=== PATIENT | female | born 2005 | race Two or more races ===

== ENCOUNTER 2024-02-18 21:16 | Emergency (ER) | payer MEDICAID ==
[~2024-02-18] VITALS: Ht 154.9 cm; Wt 61.3 kg
[2024-02-18 22:02] LABS: Basophils # (auto) 0 10 ^3/uL (0-0.2); Basophils % (auto) 0.3 % (0.0-2.0); Eosinophils # (auto) 0.2 10 ^3/uL (0-0.8); Lymphocytes # (auto) 3.1 10 ^3/uL (0.4-5.4); Mean Corpuscular Hemoglobin 29.9 pg (28.0-32.0); Mean Corpuscular Volume 87.9 fL (80.0-100.0); Monocytes # (auto) 0.6 10 ^3/uL (0-1.3); Neutrophils # (auto) 3.8 10 ^3/uL (1.6-8.6); Neutrophils % (auto) 48.7 % (37.0-80.0); Nucleated Red Blood Cells % 0.1 %; Platelet Count (auto) 265 10^3/uL (140-450); Red Blood Cells 5.35 10^6/uL (4.0-5.20); Red Cell Distribution Width 13.3 % (11.8-14.3); White Blood Cell 7.7 10^3/uL (4.4-10.8)
--- NOTE | 2024-02-18 22:04 | ED.PDOC ---
History of Present Illness HPI Comments 18 y/o F presents with c/o non-radiating, left-upper chest pain, today. Patient endorses on sudden and unprovoked onset of pain 2x hours prior to ED arrival, while resting in bed at home, this evening. She comments on pain occurring with deep breathing, movement, and pressure placed on area and describes it as "heavy" and "squeezing" in quality. Patient admits to being fine and resting all day prior to pain onset and having it in the past that lasted 2-3x minutes in duration prior to it subsiding on its on. She reports no additional relevant or pertinent history, such as recent stressors, strenuous activities, or sick contact, with exception of current control use and history of allergies. Patient denies having any shortness of breath, palpitations, dizziness, nausea, vomiting, fever, chills, or other associated symptoms or modifiers at this time. Chief Complaint: Chest Pain Time Seen by MD: 21:50 Primary Care Provider: "I don't know" Reviewed Notes: Nurses Notes, Medications, Allergies Allergies: Coded Allergies: NO KNOWN ALLERGIES (Unverified , 02/18/24) Information Source: Patient Mode of Arrival: Ambulatory Severity: Moderate Timing: Hours Duration: Since onset Prehospital treatment: None Review of Systems: REVIEW OF SYSTEMS: No fever, no chills, or fatigue HEENT: No sore throat, no earache, no congestion, no neck pain. Cardiac: left-upper chest pain. No palpitations. Lungs: No shortness of breath, no cough. GI: No nausea, no vomiting, no diarrhea, no constipation, no abdominal pain : No dysuria, frequency, or urgency. No hematuria. Musculoskeletal: No joint pain , no joint swelling, no extremity edema. Skin: No rash, no itching. Neuro: No headache, no dizziness, no weakness Vital Signs Vital Signs Date Time Temp Pulse Resp B/P (MAP) Pulse Ox O2 Delivery O2 Flow Rate FiO2 02/18/24 23:36 88 02/18/24 22:29 98.7 19 137/92 (107) 98 98.7 02/18/24 22:29 Room Air Physical Exam General: Anxious appearing, awake, alert and oriented. No acute distress. Skin: Skin in warm, dry and intact. Appropriate color for ethnicity. Nailbeds pink with no cyanosis. HEENT: The head is normocephalic and atraumatic. Conjunctivae are clear without exudates or hemorrhage. Sclera is non-icteric. EOM are intact. No signs of nystagmus. Eyelids are normal in appearance without swelling or lesions. Oral mucosa is pink and moist Neck: The neck is supple with normal range of motion. No JVD. Cardiac: Heart rate and rhythm are normal. No murmurs, gallops, or rubs are auscultated. Left upper chest wall tenderness upon palpation. Respiratory: No signs of respiratory distress. Lung sounds are clear in all lobes bilaterally without rales, ronchi, or wheezes. Abdominal: Abdomen is soft, non-tender without distention. Bowel sounds are present and normoactive in all four quadrants. Extremities: Upper and lower extremities are atraumatic in appearance without deformity or edema. Neurological: The patient is awake, alert and oriented to person, place, and time with normal speech. Speech is clear. There is no facial asymmetry. Psychiatric: Appropriate mood and affect. Good judgement and insight. No visual or auditory hallucinations. Past Medical History PAST MEDICAL HISTORY: Denies Surgical History: Denies all surgeries SCUBA DIVER History: No Pertinent SCUBA DIVER History Family History Family History: Unknown Social History Smoker: Non-Smoker Alcohol: Denies ETOH Use Drugs: Denies Drug Use Lives In: Home Was a procedure done? Was a procedure done?: No EKG EKG #1: Pulse Rate (adult): 95 [place]: Normal Cardiac Rhythm: NSR Block: None Hypertrophy: None ST: Normal EKG #2: Pulse Rate (adult): 88 [place]: Normal Cardiac Rhythm: NSR Block: None Hypertrophy: None ST: Normal Differential Dx Considerations may include: MN, PE, ACS, angina, anxiety, costochondritis, pericarditis, gastritis, gastroenteritis, musculoskeletal pain X-Ray, Labs, Meds, VS Vital Signs Date Time Temp Pulse Resp B/P (MAP) Pulse Ox O2 Delivery O2 Flow Rate FiO2 02/18/24 23:36 88 02/18/24 22:38 88 02/18/24 22:29 98.7 85 19 137/92 (107) 98 98.7 02/18/24 22:29 85 19 98 Room Air 02/18/24 22:16 95 02/18/24 21:26 95 02/18/24 21:20 99.4 89 17 133/94 (107) 95 Lab Test 02/18/24 22:20 02/18/24 21:20 Range/Units Troponin I High Sensitivity < 3 L < 3 L </=34 ng/L White Blood Count 7.7 4.4-10.8 10^3/uL Red Blood Count 5.35 H 4.0-5.20 10^6/uL Hemoglobin 16.0 12.2-16.2 g/dL Hematocrit 47.0 H 36.0-46.0 % Mean Corpuscular Volume 87.9 80.0-100.0 fL Mean Corpuscular Hemoglobin 29.9 28.0-32.0 pg Mean Corpuscular Hemoglobin Concent 34.0 32.0-36.0 g/dL Red Cell Distribution Width 13.3 11.8-14.3 % Platelet Count 265 140-450 10^3/uL Mean Platelet Volume 8.9 6.9-10.8 fL Neutrophils (%) (Auto) 48.7 37.0-80.0 % Lymphocytes (%) (Auto) 40.0 10.0-50.0 % Monocytes (%) (Auto) 8.0 0.0-12.0 % Eosinophils (%) (Auto) 3.0 0.0-7.0 % Basophils (%) (Auto) 0.3 0.0-2.0 % Neutrophils # (Auto) 3.8 1.6-8.6 10 ^3/uL Lymphocytes # (Auto) 3.1 0.4-5.4 10 ^3/uL Monocytes # (Auto) 0.6 0-1.3 10 ^3/uL Eosinophils # (Auto) 0.2 0-0.8 10 ^3/uL Basophils # (Auto) 0 0-0.2 10 ^3/uL Nucleated Red Blood Cells 0.1 % D-Dimer, Quantitative < 0.19 0.0-0.49 mg/L FEU Sodium Level 139 136-145 mmol/L Potassium Level 3.9 3.5-5.1 mmol/L Chloride Level 108 H 98-107 mmol/L Carbon Dioxide Level 24 20-31 mmol/L Anion Gap 7 5-15 Blood Urea Nitrogen 8 L 9-23 mg/dL Creatinine 0.97 0.550-1.02 mg/dL Glomerular Filtration Rate Calc 86 >90 mL/min BUN/Creatinine Ratio 8.2 L 10.0-20.0 Serum Glucose 99 74-106 mg/dL Calcium Level 10.5 H 8.7-10.4 mg/dL Total Bilirubin 0.5 0.2-1.0 mg/dL Aspartate Amino Transferase (AST) 15 13-40 U/L Alanine Aminotransferase (ALT) 29 7-40 U/L Alkaline Phosphatase 116 46-116 U/L B-Type Natriuretic Peptide 2.30 0-100 pg/mL Total Protein 8.3 H 5.7-8.2 g/dL Albumin 5.0 H 3.2-4.8 g/dL Current Medications Medications (Trade) Dose Ordered Sig/Lonnie Route Start Time Stop Time Status Last Admin Ketorolac Tromethamine (Toradol Injection) 45 mg ONCE ONCE IM 02/18/24 22:00 02/18/24 22:01 DC 02/18/24 22:21 [place] [id number] Ph: [phone] DIAGNOSTIC IMAGING Diagnostic Imaging Report : [id number] Signed PATIENT: ANA AGUIAR ACCT: [id number] UNIT: [id number] : 2005 LOC: ER ROOM / BED: / AGE / SEX: 18 / F ADM STATUS: REG ER SERVICE 49 ORDERING PHYSICIAN: PHIL PHELAN MD PROCEDURE(s): CXR1 - CHEST XRAY 1 VIEW REASON: cp ORDER NUMBER(s): [id number], ACCESSION NUMBER(s): [id number] CHEST RADIOGRAPH Indication: cp Technique: Single frontal view of the chest was obtained COMPARISON: None FINDINGS: Lines and Tubes: None Lungs: Clear Pleura: No effusion. No pneumothorax. Cardiomediastinal contours: Unremarkable Bones: Unremarkable IMPRESSION: 1. No acute disease. ATED BY: DA CURTIS MD DICTATED DATE/TIME: 02/18/242202 SIGNED BY: DA CURTIS MD SIGNED DATE/TIME: 02/18/242202 CC: Time of 1ST Reevaluation: 22:20 Reevaluation 1ST: Unchanged Time of 2ND Reevaluation: 23:49 Reevaluation 2ND: Improved Patient Education/Counseling: Diagnosis, Treatment, Need For Follow Up Family Education/Counseling: No Family Present Departure 1 Departure Time of Disposition: 23:48 Impression: Primary Impression: Chest pain Additional Impression: Elevated blood pressure reading Disposition: HOME / SELF CARE / HOMELESS Condition: Stable Additional Instructions: ED DISCHARGE INSTRUCTIONS Instructions: Please read all instructions provided in this packet carefully. Although you have been discharged from the Emergency Department, this does not mean that you have a "clean bill of health". No definitive diagnosis for your symptoms has been made today. It is possible that you are in the process of developing a serious illness. This is why you must return to the ED without fail if any new or worsening symptoms (especially if your symptoms include worsening chest pain, trouble breathing, abdominal pain, fever, headache, confusion, trouble seeing, or trouble walking) It is also very important that you see a primary care doctor within the next 3-5 days to follow up. If you are unable to get an appointment, return to the ED for re-evaluation. You had elevated blood pressure reading today. Untreated high blood pressure can have serious consequences. However, you need a follow-up appointment to recheck your blood pressure to determine whether or not you need treatment. Make an appointment with your primary care provider for this within the next week. CHEST PAIN EDUCATION There are many things that can cause chest pain. Some are not serious and will get better on their own in a few days. But some kinds of chest pain need more testing and treatment. Your doctor may have recommended a follow-up visit in the next few days. If you are not getting better, you may need more tests or treatment. Even though your doctor has released you, you still need to watch for any problems. The doctor carefully checked you, but sometimes problems can develop later. If you have new symptoms or if your symptoms do not get better, get medical care right away. If you have worse or different chest pain or pressure that lasts more than 5 minutes or you passed out (lost consciousness), call 911 or seek other emergency help right away. A medical visit is only one step in your treatment. Even if you feel better, you still need to do what your doctor recommends, such as going to all suggested follow-up appointments and taking medicines exactly as directed. This will help you recover and help prevent future problems. How can you care for yourself at home? Rest until you feel better. Take your medicine exactly as prescribed. Call your doctor if you think you are having a problem with your medicine. Do not drive after taking a prescription pain medicine. When should you call for help? Call 911 if: You passed out (lost consciousness). You have severe difficulty breathing. You have symptoms of a heart attack. These may include: Chest pain or pressure, or a strange feeling in your chest. Sweating. Shortness of breath. Nausea or vomiting. Pain, pressure, or a strange feeling in your back, neck, jaw, or upper belly or in one or both shoulders or arms. Lightheadedness or sudden weakness. A fast or irregular heartbeat. After you call 911, the head cd reactor operator may tell you to chew 1 adult-strength or 2 to 4 low-dose aspirin. Wait for an ambulance. Do not try to drive yourself. Call your doctor now or seek immediate medical care if: You have any trouble breathing. You have new or different chest pain. You are dizzy or lightheaded, or you feel like you may faint. Watch closely for changes in your health, and be sure to contact your doctor if you do not get better as expected. Current as of: September 06, 2023 Author: [employer] Staff? Comments 18-year-old female presents with reproducible left-sided chest pain. EKG negative for signs of ischemia x2. High sensitivity troponin negative x2. CXR shows no acute process. D-dimer is negative Patient's vital signs are within normal limits other than mildly elevated blood pressure. Presentation not suggestive of acute coronary syndrome, pulmonary embolism or aortic dissection. Patient improved at time of discharge. No hypoxia, respiratory distress or dyspnea at discharge. Patient able to ambulate without difficulty. Patient well-appearing, nontoxic. Advised prompt follow-up with PCP, return to the ED with any new, worsening or concerning symptoms. - I reviewed the following notes from the pt's past medical encounters: N/A The following tests were ordered, and results were reviewed by me: (See di agnostic results section) The following test were independently interpreted by me: EKG, chest x-ray Additional information was gathered from interviewing the following independent historians: (N/A) I reviewed and agreed with the following test results read by other providers: Chest X I discussed treatments and results with medical personnel and: N/A Decision regarding hospitalization or escalation of hospital level of care: Risks and benefits of admission for further treatment of patient's condition was considered however due to patient's stable condition patient will be discharged to follow up closely or return to care for worsening of condition or inability to follow up. Critical Care Note Critical Care Time?: No Stability Stability form required: No Heart Score Heart Score: Heart Score Response (Comments) Value History Slightly Suspicious 0 EKG Normal 0 Age <45 0 Risk Factors No known risk factors 0 Troponin Normal limit 0 Total 0 I personally scribed for PHIL PHELAN MD ([email or web address]) on 02/18/24 at 22:04. Electronically submitted by Ja Francois ([email or web address]). I personally scribed for PHIL PHELAN MD ([email or web address]) on 02/18/24 at 22:16. Electronically submitted by Ja Francois ([email or web address]). I personally scribed for PHIL PHELAN MD ([email or web address]) on 02/18/24 at 22:38. Electronically submitted by Ja Francois ([email or web address]). I personally scribed for PHIL PHELAN MD ([email or web address]) on 02/18/24 at 23:36. Electronically submitted by Ja Francois ([email or web address]). PHIL PHELAN MD Feb 18, 2024 22:04
[2024-02-18 22:10] LABS: Alanine Aminotransferase 29 U/L (7-40); Anion Gap 7 (5-15); Aspartate Aminotransferase 15 U/L (13-40); BUN/Creatinine Ratio 8.2 (10.0-20.0); Bilirubin, Total 0.5 mg/dL (0.2-1.0); Carbon Dioxide 24 mmol/L (20-31); Glucose 99 mg/dL (74-106); Potassium 3.9 mmol/L (3.5-5.1); Sodium 139 mmol/L (136-145)
[2024-02-18 22:12] LABS: Alkaline Phosphatase 116 U/L (46-116); Blood Urea Nitrogen 8 mg/dL (9-23); Calcium 10.5 mg/dL (8.7-10.4); Chloride 108 mmol/L (98-107); Total Protein 8.3 g/dL (5.7-8.2)
[2024-02-18] MEDS: KETOROLAC TROMETH 30 MG/ML 1ML VIAL IM ONE (22:21)
[2024-02-18 22:29] VITALS: BP 137/92; RESP 19; TEMP 98.7; O2SAT 98
[2024-02-18 23:36] VITALS: PULSE 88
[2024-02-18 23:54] LABS: Urine Bacteria None Seen /hpf (None Seen)
[2024-02-18] MEDS ORDERED: IBUP-1454 PO (23:54)
[2024-02-18] MEDS ORDERED: ACET650T12 PO (23:54)
[2024-02-19 00:05] LABS: Urine Blood Negative /uL (Negative); Urine Clarity Turbid (Clear); Urine Color Light-Yellow (Yellow); Urine Protein, UAD Negative (Negative); Urine Specific Gravity 1.014 (1.001-1.035); Urine Squamous Epithelial Cell FEW /hpf (<5); Urine Urobilinogen Normal (Negative); Urine WBC 15 /hpf (0 - 5)
--- NOTE | 2024-02-19 10:41 | ECG ---
[facility] Test Date: 2024-02-18 Test Time: 22:38:15 Pat Name: ANA WILSON Department: ED Room: Gender: F Information Security Engineer: SHANTELL : 2005 Requested By: PHIL PHELAN Order Number: [id number] Reading MD: Measurements Intervals [place] Rate: 88 P: 49 FL: 136 QRS: -29 QRSD: 86 T: 46 QT: 362 QTc: 438 Interpretive Statements Sinus rhythm Probable left atrial enlargement Borderline left axis deviation Baseline wander in lead(s) III,V1 Please click the below link to view image of tracing.
--- NOTE | 2024-02-19 10:41 | ECG ---
[facility] Test Date: 2024-02-18 Test Time: 21:26:01 Pat Name: ANA WILSON Department: ER Room: Gender: F Sr. Social Media & Mobile Manager: : 2005 Requested By: PHIL PHELAN Order Number: [id number] Reading MD: Measurements Intervals [place] Rate: 95 P: 50 [place]: 141 QRS: -46 QRSD: 95 T: 47 QT: 347 QTc: 436 Interpretive Statements Sinus rhythm Probable left atrial enlargement LAD, consider left anterior fascicular block Please click the below link to view image of tracing.
== END 2024-02-19 00:04 | disposition home or self-care (01) ==
LOC: ER 21:16
DX: R07.89 Other chest pain (principal); R03.0 Elevated blood-pressure reading, without diagnosis of hypertension
CPT/HCPCS: 36415; 71045; 80053; 81001; 83880; 84484; 85025; 85379; 93005; 96372; 99285; J1885